=== PATIENT | male | born 1940 ===

== ENCOUNTER 2021-12-19 20:58 | Inpatient (IN) | payer OTHER ==
[2021-12-19] MEDS ORDERED: FAMOTIDINE 20 MG/50 ML IVPB 20 MG/50 ML MG IVPB ONE ×2 (21:39→22:10)
[2021-12-19] MEDS ORDERED: ONDANSETRON 4 MG/2 ML VIAL IVPUSH ONE (21:39)
[2021-12-19] MEDS ORDERED: ONDANSETRON 4 MG/2 ML VIAL ONE (22:10)
[2021-12-19] MEDS ORDERED: PANTOPRAZOLE SODIUM 40 MG VIAL IVPUSH ONE (22:11)
[2021-12-19 22:18] LABS: BASO % 0.5 % (0-2.0); EOS % 0.6 % (0-4.5); HEMATOCRIT 41.1 % (35.4-49); HEMOGLOBIN 13.2 GM/dL (11.7-16.9); LYMPH % 8.3 % (8-40); MCH 27.3 pg (25.7-33.7); MCHC 32.2 g/dl (32.0-35.9); MEAN CELL VOLUME 84.9 fl (80-96); MEAN PLT VOLUME 6.8 fl (7.5-11.1); MONO % 4.2 % (3.8-10.2); NEUT % 86.4 % (42.8-82.8); PLATELET COUNT 362 10^3/uL (134-434); RBC 4.84 M/mm3 (4.00-5.60); RDW 15.5 % (11.9-15.9); WHITE BLOOD COUNT 15.8 K/mm3 (4.0-10.0)
[2021-12-19 22:25] LABS: INR 1.15 (0.83-1.09); PROTHROMBIN TIME (PATIENT) 13.2 SEC (9.7-13.0)
[2021-12-19] MEDS ORDERED: PANTOPRAZOLE SODIUM 80 MG/200 ML BAG IVPB ONE (22:35)
[2021-12-19 22:48] LABS: BLOOD UREA NITROGEN 31.5 mg/dL (7-18); CALCIUM 9.4 mg/dL (8.5-10.1)
[2021-12-19 22:49] LABS: MAGNESIUM 1.9 mg/dL (1.8-2.4)
[2021-12-19 22:51] LABS: CREATININE 1.5 mg/dL (0.55-1.3)
[2021-12-19 22:53] LABS: BILIRUBIN,TOTAL 0.3 mg/dL (0.2-1); TOT PROT 6.7 g/dl (6.4-8.2)
[2021-12-20] MEDS ORDERED: PIPERACILLIN/TAZOB 3.375 GM 3.375 GM in DEXTROSE 5%-WATER - 50 ML IVPB ONE (00:08)
[2021-12-20] MEDS ORDERED: PIPERACILLIN/TAZOB 3.375 GM 3.375 GM/50 ML BAG IVPB ONE (00:33)
[2021-12-20] MEDS ORDERED: SODIUM CHLORIDE 0.9% 1000 ML INFUS.BAG IV ONE (01:42)
[2021-12-20] MEDS ORDERED: BISACODYL 5 MG TABLET.DR (FP) PO PRN (03:35)
[2021-12-20 06:58] LABS: EPI CELLS >36 /uL (0-25.1); HYALINE CASTS 2 /uL (0-3.1); URINE APPEARANCE CLEAR; URINE BACTERIA 19 /uL (0-1359); URINE BILIRUBIN NEGATIVE (NEGATIVE); URINE COLOR YELLOW; URINE GLUCOSE (UA) NEGATIVE (NEGATIVE); URINE KETONE NEGATIVE (NEGATIVE); URINE LEUK ESTERASE 1+ (NEGATIVE); URINE NITRITE NEGATIVE (NEGATIVE); URINE PROTEIN NEGATIVE (NEGATIVE); URINE RBC 1222 /uL (0-23.9); URINE UROBILINOGEN 0.2 mg/dL (0.2-1.0); URINE WBC 30 /uL (0-25.8)
[2021-12-20 08:43] LABS: BLOOD UREA NITROGEN 26.1 mg/dL (7-18); CALCIUM 8.8 mg/dL (8.5-10.1)
[2021-12-20 08:44] LABS: MAGNESIUM 2.1 mg/dL (1.8-2.4)
[2021-12-20 08:47] LABS: CREATININE 1.4 mg/dL (0.55-1.3); PHOSPHOROUS 2.9 mg/dL (2.5-4.9)
[2021-12-20] MEDS: INSULIN SLIDING SCALE (NOVOLOG) 1 VIAL SQ SCH ×3 (11:13→17:55)
[2021-12-20] MEDS ORDERED: POLYETHYLENE GLYCOL (HEALTHYLAX) 3350 17 GM PACKET ONE (11:22)
[2021-12-20] MEDS ORDERED: ENOXAPARIN NA (PORCINE) 40 MG/0.4 ML DISP.SYRIN SQ ONE (11:22)
[2021-12-20] MEDS ORDERED: cloNIDine HCL 0.1 MG TABLET ONE (11:22)
[2021-12-20] MEDS: POLYETHYLENE GLYCOL (HEALTHYLAX) 3350 17 GM PACKET PO SCH ×3 (11:32→22:08)
[2021-12-20] MEDS: SODIUM CHLORIDE 1,000 ML IV SCH (11:32)
[2021-12-20] MEDS: ENOXAPARIN NA (PORCINE) 40 MG/0.4 ML DISP.SYRIN SQ SCH (11:33)
[2021-12-20] MEDS: cloNIDine HCL 0.1 MG TABLET PO SCH ×2 (11:33→22:00)
[2021-12-20] MEDS: DEXTROSE 50%-WATER 25 GM/50 ML DISP.SYRIN IVPUSH ONE ×2 (11:46)
[2021-12-20 11:47] VITALS: RESP 18
[2021-12-20 11:50] LABS: BASO % 0.4 % (0-2.0); EOS % 1.3 % (0-4.5); HEMATOCRIT 38.6 % (35.4-49); HEMOGLOBIN 12.4 GM/dL (11.7-16.9); LYMPH % 11.5 % (8-40); MCH 27.6 pg (25.7-33.7); MCHC 32.3 g/dl (32.0-35.9); MEAN CELL VOLUME 85.5 fl (80-96); MEAN PLT VOLUME 6.8 fl (7.5-11.1); MONO % 5.7 % (3.8-10.2); NEUT % 81.1 % (42.8-82.8); PLATELET COUNT 332 10^3/uL (134-434); RBC 4.51 M/mm3 (4.00-5.60); RDW 15.9 % (11.9-15.9); WHITE BLOOD COUNT 11.1 K/mm3 (4.0-10.0)
[2021-12-20] MEDS: PANTOPRAZOLE 40 MG TABLET PO SCH (12:53)
[2021-12-20] MEDS ORDERED: PNEUMOC 20-VAL CONJ-DIP CRM/PF 0.5 ML SYRINGE IM ONE (14:00)
[2021-12-20] MEDS: MELATONIN 5 MG TABLETS PO SCH (22:00)
[2021-12-20] MEDS: MAG HYDROX/AL HYDROX/SIMETH 30 ML UNIT-DOSE CUP PO SCH (22:00)
[2021-12-20] MEDS: SENNOSIDES 8.6MG TABLET (FP) PO SCH (22:00)
[2021-12-20] MEDS: FAMOTIDINE 10 MG TABLET PO SCH (22:00)
[2021-12-20] MEDS: LATANOPROST 0.005% OPHTH SOLN 2.5ML BOTTLE OU SCH (22:01)
[2021-12-21] MEDS: POLYETHYLENE GLYCOL (HEALTHYLAX) 3350 17 GM PACKET PO SCH ×4 (06:31→22:19)
[2021-12-21] MEDS: INSULIN SLIDING SCALE (NOVOLOG) 1 VIAL SQ SCH ×3 (06:39→16:57)
[2021-12-21] MEDS: SODIUM CHLORIDE 1,000 ML IV SCH (08:13)
[2021-12-21 08:46] LABS: BASO % 0.5 % (0-2.0); EOS % 1.7 % (0-4.5); HEMATOCRIT 31.8 % (35.4-49); HEMOGLOBIN 10.8 GM/dL (11.7-16.9); LYMPH % 21.3 % (8-40); MCH 28.7 pg (25.7-33.7); MEAN CELL VOLUME 84.3 fl (80-96); MEAN PLT VOLUME 6.8 fl (7.5-11.1); NEUT % 68.5 % (42.8-82.8); PLATELET COUNT 279 10^3/uL (134-434); RBC 3.77 M/mm3 (4.00-5.60); RDW 15.3 % (11.9-15.9); WHITE BLOOD COUNT 6.5 K/mm3 (4.0-10.0)
[2021-12-21] MEDS: FERROUS SO4 325 MG TABLET (FP) PO SCH (09:29)
[2021-12-21] MEDS: amLODIPine BESYLATE 5 MG TABLET (FP) PO SCH (09:29)
[2021-12-21] MEDS: ASPIRIN 325 MG TABLET PO SCH (09:29)
[2021-12-21] MEDS: PANTOPRAZOLE 40 MG TABLET PO SCH (09:30)
[2021-12-21] MEDS: MAG HYDROX/AL HYDROX/SIMETH 30 ML UNIT-DOSE CUP PO SCH ×2 (09:30→22:19)
[2021-12-21] MEDS: ENOXAPARIN NA (PORCINE) 40 MG/0.4 ML DISP.SYRIN SQ SCH (09:30)
[2021-12-21] MEDS: CLOPIDOGREL BISULFATE 75 MG TABLET (FP) PO SCH (09:30)
[2021-12-21] MEDS: cloNIDine HCL 0.1 MG TABLET PO SCH ×2 (09:31→22:19)
[2021-12-21] MEDS ORDERED: PEG 3350/NA SULF BICARB CL/KCL 4000 ML SOLN.RECON PO ONE (13:23)
[2021-12-21] MEDS: FAMOTIDINE 10 MG TABLET PO SCH (22:19)
[2021-12-21] MEDS: SENNOSIDES 8.6MG TABLET (FP) PO SCH (22:19)
[2021-12-21] MEDS: MELATONIN 5 MG TABLETS PO SCH (22:19)
[2021-12-21] MEDS: LATANOPROST 0.005% OPHTH SOLN 2.5ML BOTTLE OU SCH (22:21)
[2021-12-22] MEDS: POLYETHYLENE GLYCOL (HEALTHYLAX) 3350 17 GM PACKET PO SCH ×3 (06:09→22:47)
[2021-12-22] MEDS: INSULIN SLIDING SCALE (NOVOLOG) 1 VIAL SQ SCH ×3 (06:14→20:39)
[2021-12-22] MEDS: FERROUS SO4 325 MG TABLET (FP) PO SCH (08:46)
[2021-12-22 09:56] LABS: BASO % 0.8 % (0-2.0); EOS % 1.4 % (0-4.5); HEMATOCRIT 28.9 % (35.4-49); HEMOGLOBIN 9.7 GM/dL (11.7-16.9); LYMPH % 18.8 % (8-40); MCH 28.6 pg (25.7-33.7); MCHC 33.5 g/dl (32.0-35.9); MEAN CELL VOLUME 85.2 fl (80-96); MEAN PLT VOLUME 6.8 fl (7.5-11.1); MONO % 8.4 % (3.8-10.2); NEUT % 70.6 % (42.8-82.8); PLATELET COUNT 261 10^3/uL (134-434); RBC 3.39 M/mm3 (4.00-5.60); RDW 15.2 % (11.9-15.9); WHITE BLOOD COUNT 5.6 K/mm3 (4.0-10.0)
[2021-12-22] MEDS: MAG HYDROX/AL HYDROX/SIMETH 30 ML UNIT-DOSE CUP PO SCH ×2 (10:16→22:47)
[2021-12-22] MEDS: CLOPIDOGREL BISULFATE 75 MG TABLET (FP) PO SCH (10:17)
[2021-12-22] MEDS: cloNIDine HCL 0.1 MG TABLET PO SCH ×2 (10:17→22:47)
[2021-12-22] MEDS: ASPIRIN 325 MG TABLET PO SCH (10:17)
[2021-12-22] MEDS: amLODIPine BESYLATE 5 MG TABLET (FP) PO SCH (10:17)
[2021-12-22] MEDS: ASCORBIC ACID 500 MG TABLET (FP) PO SCH (10:17)
[2021-12-22] MEDS: PANTOPRAZOLE 40 MG TABLET PO SCH (10:17)
[2021-12-22] MEDS: ENOXAPARIN NA (PORCINE) 40 MG/0.4 ML DISP.SYRIN SQ SCH (10:18)
[2021-12-22] MEDS ORDERED: PEG 3350/NA SULF BICARB CL/KCL 4000 ML SOLN.RECON PO ONE (14:30)
[2021-12-22 17:12] VITALS: BMI 18.9
[2021-12-22] MEDS: FAMOTIDINE 10 MG TABLET PO SCH (22:47)
[2021-12-22] MEDS: SENNOSIDES 8.6MG TABLET (FP) PO SCH (22:47)
[2021-12-22] MEDS: MELATONIN 5 MG TABLETS PO SCH (22:47)
[2021-12-22] MEDS: LATANOPROST 0.005% OPHTH SOLN 2.5ML BOTTLE OU SCH (22:49)
[2021-12-23] MEDS: INSULIN SLIDING SCALE (NOVOLOG) 1 VIAL SQ SCH ×4 (06:31→17:35)
[2021-12-23] MEDS: POLYETHYLENE GLYCOL (HEALTHYLAX) 3350 17 GM PACKET PO SCH ×3 (06:31→22:17)
[2021-12-23] MEDS: FERROUS SO4 325 MG TABLET (FP) PO SCH (08:04)
[2021-12-23 10:08] LABS: BASO % 0.5 % (0-2.0); EOS % 1.3 % (0-4.5); HEMATOCRIT 30.9 % (35.4-49); HEMOGLOBIN 10.2 GM/dL (11.7-16.9); LYMPH % 13.2 % (8-40); MCH 28.2 pg (25.7-33.7); MCHC 33.1 g/dl (32.0-35.9); MEAN CELL VOLUME 85.4 fl (80-96); MEAN PLT VOLUME 6.8 fl (7.5-11.1); PLATELET COUNT 288 10^3/uL (134-434); RBC 3.62 M/mm3 (4.00-5.60); RDW 15.7 % (11.9-15.9); WHITE BLOOD COUNT 7.5 K/mm3 (4.0-10.0)
[2021-12-23] MEDS: amLODIPine BESYLATE 5 MG TABLET (FP) PO SCH (10:12)
[2021-12-23] MEDS: cloNIDine HCL 0.1 MG TABLET PO SCH ×2 (10:12→22:15)
[2021-12-23] MEDS: ASCORBIC ACID 500 MG TABLET (FP) PO SCH (10:12)
[2021-12-23] MEDS: ASPIRIN 325 MG TABLET PO SCH (10:12)
[2021-12-23] MEDS: PANTOPRAZOLE 40 MG TABLET PO SCH (10:12)
[2021-12-23] MEDS: MAG HYDROX/AL HYDROX/SIMETH 30 ML UNIT-DOSE CUP PO SCH ×2 (10:12→22:17)
[2021-12-23] MEDS: CLOPIDOGREL BISULFATE 75 MG TABLET (FP) PO SCH (10:12)
[2021-12-23] MEDS: ENOXAPARIN NA (PORCINE) 40 MG/0.4 ML DISP.SYRIN SQ SCH (10:13)
[2021-12-23 10:29] LABS: CALCIUM 8.8 mg/dL (8.5-10.1)
[2021-12-23 10:30] LABS: BLOOD UREA NITROGEN 17.4 mg/dL (7-18); MAGNESIUM 2.4 mg/dL (1.8-2.4)
[2021-12-23 10:33] LABS: CREATININE 1.5 mg/dL (0.55-1.3); PHOSPHOROUS 2.6 mg/dL (2.5-4.9)
[2021-12-23] MEDS: FLUTICASONE PROP 0.05% 16 GM NASAL SPRAY NS SCH ×2 (12:30→22:17)
[2021-12-23] MEDS: MELATONIN 5 MG TABLETS PO SCH (22:15)
[2021-12-23] MEDS: FAMOTIDINE 10 MG TABLET PO SCH (22:16)
[2021-12-23] MEDS: SENNOSIDES 8.6MG TABLET (FP) PO SCH (22:16)
[2021-12-23] MEDS: LATANOPROST 0.005% OPHTH SOLN 2.5ML BOTTLE OU SCH (22:17)
[2021-12-24] MEDS: POLYETHYLENE GLYCOL (HEALTHYLAX) 3350 17 GM PACKET PO SCH ×3 (05:50→21:44)
[2021-12-24] MEDS: INSULIN SLIDING SCALE (NOVOLOG) 1 VIAL SQ SCH ×3 (06:13→16:42)
[2021-12-24] MEDS: MAG HYDROX/AL HYDROX/SIMETH 30 ML UNIT-DOSE CUP PO SCH ×2 (09:52→21:44)
[2021-12-24] MEDS: ENOXAPARIN NA (PORCINE) 40 MG/0.4 ML DISP.SYRIN SQ SCH (09:52)
[2021-12-24] MEDS: amLODIPine BESYLATE 5 MG TABLET (FP) PO SCH (09:53)
[2021-12-24] MEDS: FERROUS SO4 325 MG TABLET (FP) PO SCH (09:53)
[2021-12-24] MEDS: cloNIDine HCL 0.1 MG TABLET PO SCH ×2 (09:53→21:44)
[2021-12-24] MEDS: ASPIRIN 325 MG TABLET PO SCH (09:54)
[2021-12-24] MEDS: PANTOPRAZOLE 40 MG TABLET PO SCH (09:54)
[2021-12-24] MEDS: CLOPIDOGREL BISULFATE 75 MG TABLET (FP) PO SCH (09:54)
[2021-12-24] MEDS: ASCORBIC ACID 500 MG TABLET (FP) PO SCH (09:54)
[2021-12-24] MEDS: FLUTICASONE PROP 0.05% 16 GM NASAL SPRAY NS SCH ×2 (10:30→21:45)
[2021-12-24] MEDS: LATANOPROST 0.005% OPHTH SOLN 2.5ML BOTTLE OU SCH (21:44)
[2021-12-24] MEDS: FAMOTIDINE 10 MG TABLET PO SCH (21:45)
[2021-12-24] MEDS: SENNOSIDES 8.6MG TABLET (FP) PO SCH (21:45)
[2021-12-24] MEDS: MELATONIN 5 MG TABLETS PO SCH (21:45)
[2021-12-25] MEDS: POLYETHYLENE GLYCOL (HEALTHYLAX) 3350 17 GM PACKET PO SCH ×2 (06:15→14:10)
[2021-12-25] MEDS: INSULIN SLIDING SCALE (NOVOLOG) 1 VIAL SQ SCH ×2 (06:15→12:11)
[2021-12-25] MEDS: MAG HYDROX/AL HYDROX/SIMETH 30 ML UNIT-DOSE CUP PO SCH (09:38)
[2021-12-25] MEDS: ENOXAPARIN NA (PORCINE) 40 MG/0.4 ML DISP.SYRIN SQ SCH (09:38)
[2021-12-25] MEDS: amLODIPine BESYLATE 5 MG TABLET (FP) PO SCH (09:39)
[2021-12-25] MEDS: PANTOPRAZOLE 40 MG TABLET PO SCH (09:39)
[2021-12-25] MEDS: ASPIRIN 325 MG TABLET PO SCH (09:39)
[2021-12-25] MEDS: CLOPIDOGREL BISULFATE 75 MG TABLET (FP) PO SCH (09:39)
[2021-12-25] MEDS: FERROUS SO4 325 MG TABLET (FP) PO SCH (09:39)
[2021-12-25] MEDS: cloNIDine HCL 0.1 MG TABLET PO SCH (09:39)
[2021-12-25] MEDS: ASCORBIC ACID 500 MG TABLET (FP) PO SCH (09:39)
[2021-12-25] MEDS: FLUTICASONE PROP 0.05% 16 GM NASAL SPRAY NS SCH (09:39)
[2021-12-25 14:20] VITALS: BP 97/55; PULSE 72; TEMP 98.7
== END 2021-12-24 16:00 | DRG 392 ==
LOC: JER 20:58 → JERBED 22:50 → J6S 12-20 12:01
PROVIDERS: ADMIT Internal Medicine
DX: K59.00 Constipation, unspecified (principal); G81.94 Hemiplegia, unspecified affecting left nondominant side; I12.9 Hypertensive chronic kidney disease with stage 1 through stage 4 chronic kidney disease, or unspecified chronic kidney disease; E11.22 Type 2 diabetes mellitus with diabetic chronic kidney disease; N18.9 Chronic kidney disease, unspecified; E86.0 Dehydration; F32.A Depression, unspecified; R91.8 Other nonspecific abnormal finding of lung field; D50.9 Iron deficiency anemia, unspecified; D72.829 Elevated white blood cell count, unspecified
CPT/HCPCS: 36415; 71045-TC-FY; 71250-TC; 74176-TC; 76775-TC; 80048; 80053; 81003; 82272; 82550; 82553; 82570; 82728; 82962; 83540; 83550; 83605; 83690; 83735; 84100; 84156; 84484; 85025; 85610; 85730; 86850; 86900; 86901; 87086; 90677; 93005; 93010; 97116-GP; 99285-25; C9803-CS; U0003; U0005